=== PATIENT | male | born 2000 | race American Indian/Alaskan Native ===

== ENCOUNTER → 2024-06-27 | Emergency (ER) | payer SELFPAY ==
[~2024-06-27] VITALS: Ht 188 cm; Wt 86.0 kg
[~2024-06-27] MED LIST: FOLIC ACID 1 MG, THIAMINE HCL 100 MG, MVI, ADULT NO.1 10 ML in DEXTROSE 5% WATER 1,000 ML IV ONE; TETANUS, DIPHTHERIA, PERTUSSIS VAC/PF 0.5ML (>10YR OLD) IM ONE
[2024-06-27 19:37] VITALS: BP 117/79; PULSE 80; RESP 18; TEMP 36.8; O2SAT 99
== END ==
LOC: ER 19:24
DX: S80.211A Abrasion, right knee, initial encounter (principal); S80.212A Abrasion, left knee, initial encounter; F10.129 Alcohol abuse with intoxication, unspecified; Y90.9 Presence of alcohol in blood, level not specified
CPT/HCPCS: 99283; J3490 ×2; J3411; J7070